=== PATIENT | female | born 1970 | race Caucasian/White ===

== ENCOUNTER 2024-08-09 22:11 | Emergency (ER) | payer OTHER ==
[~2024-08-09] VITALS: Ht 165.1 cm; Wt 77.1 kg
[2024-08-09] MEDS ORDERED: HORMONE REPLACEMENT (22:28)
[2024-08-09] MEDS ORDERED: AZIT250T13 PO (23:29)
== END 2024-08-09 23:39 | disposition home or self-care (01) ==
LOC: ER 22:19
DX: H66.92 Otitis media, unspecified, left ear (principal); R09.81 Nasal congestion; Z79.890 Hormone replacement therapy
CPT/HCPCS: A4606; A4663